=== PATIENT | female | born 1985 | race Caucasian/White ===

== ENCOUNTER 2017-03-28 14:02 | Emergency (ER) | payer OTHER ==
[~2017-03-28] VITALS: Ht 149.9 cm; Wt 45.0 kg
[~2017-03-28 14:02] MED LIST: AMITRIPTYLINE; Acyclovir PO; Aspirin Chewable PO; CLONIDINE HCL0.1 MG PO; Cipro PO; Colace PO; ENDOCET 5-3251 EACH PO; Flagyl PO; MIRENA52 MG IY; Milk Of Magnesia,MOM PO; Motrin PO; NORCO 5/3251 TABLET PO; SUMATRIPTAN SUC50 MG PO
[2017-03-28] MEDS ORDERED: MOTRIN800 MG PO (15:55)
[2017-03-28 16:08] VITALS: BP 118/69
== END 2017-03-28 16:14 | disposition home or self-care (01) ==
LOC: EME 14:02
DX: S60.222A Contusion of left hand, initial encounter (principal); S60.212A Contusion of left wrist, initial encounter; S60.512A Abrasion of left hand, initial encounter; W23.1XXA Caught, crushed, jammed, or pinched between stationary objects, initial encounter; Z91.040 Latex allergy status; Z88.6 Allergy status to analgesic agent; Z88.0 Allergy status to penicillin
CPT/HCPCS: 73110; 73130; 99281; 99283

== ENCOUNTER 2017-09-16 20:49 | Emergency (ER) | payer OTHER ==
[~2017-09-16] VITALS: Ht 149.9 cm; Wt 49.2 kg
[~2017-09-16 20:49] MED LIST changes: +MOTRIN800 MG PO
[2017-09-16] MEDS ORDERED: NAPROSYN500 MG PO (21:54)
[2017-09-16 22:05] VITALS: BP 120/77
== END 2017-09-16 22:06 | disposition home or self-care (01) ==
LOC: EME 20:49
DX: T23.161A Burn of first degree of back of right hand, initial encounter (principal); T31.0 Burns involving less than 10% of body surface; X10.2XXA Contact with fats and cooking oils, initial encounter; F17.200 Nicotine dependence, unspecified, uncomplicated; Z90.710 Acquired absence of both cervix and uterus; Z88.0 Allergy status to penicillin; Z88.6 Allergy status to analgesic agent; Z91.040 Latex allergy status